=== PATIENT | male | born 1960 | race Caucasian/White ===

== ENCOUNTER 2019-07-22 16:07 | Emergency (ER) | payer OTHER ==
[~2019-07-22] VITALS: Ht 180.3 cm; Wt 56.7 kg
[2019-07-22 16:11] VITALS: Ht 180.3 cm; Wt 56.7 kg
[2019-07-22 17:40] VITALS: BP 106/67
== END 2019-07-22 17:40 | disposition home or self-care (01) ==
LOC: ED 16:07 → EDBD 16:07 → ED 16:07
DX: T85.598A Other mechanical complication of other gastrointestinal prosthetic devices, implants and grafts, initial encounter (principal); Z13.89 Encounter for screening for other disorder; E03.9 Hypothyroidism, unspecified; Z86.2 Personal history of diseases of the blood and blood-forming organs and certain disorders involving the immune mechanism; Z85.810 Personal history of malignant neoplasm of tongue; Z98.890 Other specified postprocedural states